=== PATIENT | female | born 1970 | race Caucasian/White ===

== ENCOUNTER 2022-08-29 06:40 | Outpatient (OUT) | payer OTHER, SELFPAY ==
--- NOTE | 2022-08-29 07:00 | MR_ITS ---
The [address] [address] Patient Name: SULLY DEAL MRN: [id number] date: 1970 Sex: F Assigned Patient Location: MRI Current Patient Location: MRI Accession/Order Number: [id number] Exam Date: 08/29/2022 07:00 Report Date: 09/01/2022 12:39 At the request of: NON-STAFF PHYSICIAN Procedure: MR wrist RT wo con HISTORY: Right wrist and hand pain. MR wrist RT wo con: 08/29/2022 7:00 AM EDT COMPARISON: Radiographs right hand 08/14/2022. TECHNIQUE: Multiplanar, multisequence MRI images of the wrist were obtained. FINDINGS: A few images are slightly degraded by motion artifact. LIGAMENTS AND TFCC: The scapholunate ligament complex and lunotriquetral ligament appear intact. The central disc of the TFCC appears thin and of intermediate signal intensity. BONES AND JOINTS: The bone marrow signal intensity appears age appropriate. There is subchondral cystic change and bone marrow edema involving the proximal and ulnar aspect of the lunate. However, there is preservation of the normal T1 fat signal intensity throughout the majority of the lunate. There appear to be mild degenerative changes of the radiocarpal joint. There is a small amount of fluid within a joint recess proximal to the triquetrum-pisiform joint. There are 2 small loose bodies within this fluid. These each measure approximately 3 mm in size. There appear to be at least moderate degenerative changes of the first carpometacarpal joint and there is mild to chondral cystic change within the distal trapezium. TENDONS: The tendons of the wrist appear grossly within normal limits without evidence of significant tendinopathy or tenosynovitis. CARPAL TUNNEL: The visualized median nerve appears grossly within normal limits and no space-occupying mass is seen in the carpal tunnel. MUSCLES AND SOFT TISSUES: The visualized musculature appears grossly within normal limits in signal intensity. No significant soft tissue swelling is seen. IMPRESSION: 1. There appear to be a least mild degenerative changes of the radiocarpal joint and there is subchondral cystic change and bone marrow edema within the proximal and ulnar aspect of the lunate. This is probably secondary to overlying chondromalacia of the lunate or the sequela of ulnocarpal impaction syndrome. However, there is no convincing MRI evidence of avascular necrosis of the lunate. 2. There 2 small loose bodies within a joint recess proximal to the triquetrum-pisiform joint. 3. Moderate osteoarthritis of the first carpometacarpal joint. 4. Probable partial-thickness tear of the central disc of the TFCC. Electronically authenticated by: JAYLA SANCHEZ Date: 09/01/2022 12:39
--- NOTE | 2022-08-29 07:00 | MR_ITS ---
The [address] [address] Patient Name: SULLY DEAL MRN: [id number] date: 1970 Sex: F Assigned Patient Location: MRI Current Patient Location: MRI Accession/Order Number: [id number] Exam Date: 08/29/2022 07:00 Report Date: 09/01/2022 12:38 At the request of: NON-STAFF PHYSICIAN Procedure: MR hand RT wo con HISTORY: Pain in the region of the metacarpophalangeal joints of the right hand. MR hand RT wo con: 08/29/2022, 7:00 AM EDT COMPARISON: Radiographs of the right hand 08/14/2022. TECHNIQUE: Multiplanar, multisequence MRI images of the hand were obtained without contrast. FINDINGS: The bone marrow signal intensity appears age appropriate. There appear to be probably at least moderate degenerative changes of the first carpometacarpal joint and there is mild subchondral cystic change within the distal trapezium. There appear to be at least mild degenerative changes of the first MCP joint. There appear to be at least moderate degenerative changes of the second and third MCP joints with joint space narrowing and marginal osteophyte formation. There are small joint effusions of these joints. No erosive change is seen of these joints. No significant tendinopathy or tenosynovitis is seen. No muscle edema is identified. There are small joint effusions of the fourth and fifth MCP joints. IMPRESSION: 1. There appears to be at least moderate osteoarthritis of the second and third MCP joints with small joint effusions. 2. There appears to be at least moderate osteoarthritis of the first carpometacarpal joint and at least mild osteoarthritis of the first MCP joint. Electronically authenticated by: JAYLA SANCHEZ Date: 09/01/2022 12:38
== END 2022-08-29 06:41 ==
DX: M25.531 Pain in right wrist (principal); M79.641 Pain in right hand; M19.041 Primary osteoarthritis, right hand
CPT/HCPCS: 73218; 73221